=== PATIENT | male | born 1980 | race Caucasian/White ===

== ENCOUNTER 2021-06-07 16:20 | Emergency (ER) | payer OTHER ==
[~2021-06-07] VITALS: Ht 177.8 cm; Wt 100.0 kg
[2021-06-07 19:44] VITALS: BP 124/64
== END 2021-06-07 20:12 | disposition home or self-care (01) | DRG 563 ==
LOC: ED 16:20
DX: S93.402A Sprain of unspecified ligament of left ankle, initial encounter (principal); X50.0XXA Overexertion from strenuous movement or load, initial encounter; Y93.41 Activity, dancing; Y92.009 Unspecified place in unspecified non-institutional (private) residence as the place of occurrence of the external cause